=== PATIENT | male | born 1980 | race Caucasian/White ===

== ENCOUNTER 2021-11-05 22:35 | Inpatient (IN) | payer MEDICARE, OTHER, SELFPAY ==
--- NOTE | 2021-11-05 22:36 | ECG_ITS ---
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 Measurements Intervals [place] Rate: 71 P: 70 VT: 161 QRS: 43 QRSD: 87 T: 80 QT: 407 QTc: 443 Interpretive Statements SINUS RHYTHM TALL T-WAVES, SUGGESTS HYPERKALEMIA No previous ECG available for comparison Electronically Signed On 11-05-2021 23:25:36 CDT by Bryce Joseph M.D. [id number]
--- NOTE | 2021-11-05 22:47 | XRR_ITS ---
PROCEDURE INFORMATION: Exam: XR Chest Exam date and time: 11/05/2021 11:02 PM Age: 41 years old Clinical indication: Shortness of breath; Chest pressure; Patient HX: C/O RT sided chest pain with SOB. TECHNIQUE: Imaging protocol: Radiologic exam of the chest. Views: 1 view. COMPARISON: No relevant prior studies available. FINDINGS: Lungs: Unremarkable. No consolidation. Pleural spaces: Unremarkable. No pleural effusion. No pneumothorax. Heart/Mediastinum: Unremarkable. No cardiomegaly. Bones/joints: Unremarkable. XR/XR chest 1V portable [id number] IMPRESSION: No acute findings.
[2021-11-05 22:48] VITALS: BP 214/110; PULSE 72; RESP 18; TEMP 36.6; O2SAT 98; BMI 29.0
--- NOTE | 2021-11-05 22:51 | ED_ITS ---
HPI - Chest Pain General: Chief Complaint: Chest Pain Stated Complaint: Chest Pain/SOB Time Seen by Provider: 11/05/21 22:44 Source: patient Mode of arrival: ambulatory Limitations: no limitations History of Present Illness: 41-year-old male that has a history of end-stage renal disease. He states he is actually visiting here and is on vacation he supposed to be scheduled for dialysis today but was unable to get in. He states he has not had dialysis since Friday. He states has been having pain all over along with chest pain he is concerned that he is getting hyperkalemic. He is having some slight dyspnea denies any vomiting or diarrhea denies any worsening improving factors he is hypertensive here. Associated symptoms: Deny abdominal pain, dyspnea, fever(s), nausea or vomiting Review of Systems Const: Denies: fever(s), chills, body aches or change in appetite Eyes: Denies: blurry vision or eye discomfort ENMT: Denies: throat pain or dental pain Card: Reports: chest pain Resp: Denies: dyspnea GI: Denies: abdominal pain, nausea, vomiting or diarrhea : Denies: dysuria Musc: Denies: neck pain or back pain Skin/Breast: Denies: rash Neuro: Denies: headache(s) Psych: Denies: depression Hero/Lymph: Denies: easy bruising All/Imm: Denies: urticaria PFSH ED PFSH: Medical History (Updated 11/05/21 @ 23:51 by Srinivasa Philippe MD) ESRD (end stage renal disease) Social History (Updated 11/05/21 @ 22:51 by Srinivasa Philippe MD) Substance/Drug Use: unknown Physical Exam Const: COMMON NORMALS: patient oriented x3 HENMT: COMMON NORMALS: normocephalic and atraumatic HEAD & SCALP: normocephalic and atraumatic Eye: COMMON NORMALS: Equal, round and reactive pupils present and EOMs intact bilaterally PUPIL: Yes Equal, round and reactive pupils present Neck/C-Spine: COMMON NORMALS: full ROM and supple Chest: COMMONS NORMALS: normal inspection of the chest and normal palpation of entire chest wall Resp: COMMON NORMALS: normal respiratory effort, No retractions, No use of accessory muscles and clear to auscultation bilaterally AUSCULTATION: clear to auscultation bilaterally Cardio: COMMON NORMALS: regular rate, regular rhythm and No murmurs present (Cardio) RATE: regular rate RHYTHM: regular rhythm GI: COMMON NORMALS: Normal to inspection, nondistended, normoactive bowel sounds present, Soft to palpation, non-tender and no masses PALPATION: Yes Soft to palpation Extremity: COMMON NORMALS: normal to inspection and full ROM Neuro: COMMON NORMALS: patient oriented x3, moves all extremities and no focal motor deficits Psych: COMMON NORMALS: mental status grossly normal, Normal thought process present and cooperative THOUGHT PROCESS: Normal thought process present Skin: COMMON NORMALS: no rashes or lesions noted and no wounds GENERAL SKIN EXAM: no rashes or lesions noted Course Vital Signs: Vital signs: Vital Signs Temperature 97.8 F 11/05/21 22:48 Pulse Rate 72 11/05/21 22:48 Respiratory Rate 18 11/05/21 22:48 Blood Pressure 214/110 11/05/21 22:48 Pulse Oximetry 98 11/05/21 22:48 MDM - Chest Pain Medical Decision Making pt presents here with hyperkalemia and esrd. he had missed dialysis today. he does have peaked t wave on ekg. Pt given insulin, and calcium. will admit to icu and consult neprology Lab Data : 11/05/21 22:57 11/05/21 22:57 Laboratory Results WBC 12.0 10^3/uL (4.0-10.0) H 11/05/21 22:57 RBC 3.84 10^6/uL (4.1-5.3) L 11/05/21 22:57 Hgb 12.9 g/dL (11.7-16.6) 11/05/21 22:57 Hct 37.3 % (42.0-52.0) L 11/05/21 22:57 MCV 97.1 fl (80-94) H 11/05/21 22:57 MCH 33.6 pg (28.0-34.0) 11/05/21 22:57 MCHC 34.6 g/dL (30.0-36.0) 11/05/21 22:57 RDW 13.7 % (12.1-15.1) 11/05/21 22:57 Plt Count 264 10^3/cmm (130-400) 11/05/21 22:57 MPV 10.1 fL (7.4-10.4) 11/05/21 22:57 Neut % (Auto) 77.6 % 11/05/21 22:57 Lymph % (Auto) 13.9 % 11/05/21 22:57 [place] % (Auto) 6.7 % 11/05/21 22:57 Eos % (Auto) 0.9 % 11/05/21 22:57 Baso % (Auto) 0.5 % 11/05/21 22:57 Neut # (Auto) 9.30 10^3/uL (1.8-7.7) H 11/05/21 22:57 Lymph # (Auto) 1.7 10^3/uL (0.8-4.8) 11/05/21 22:57 [place] # (Auto) 0.8 10^3/uL (0.2-0.9) 11/05/21 22:57 Eos # (Auto) 0.1 10^3/uL (0.0-0.8) 11/05/21 22:57 Baso # (Auto) 0.1 10^3/uL (0.0-0.1) 11/05/21 22:57 Nucleated RBC % (auto) 0 % 11/05/21 22:57 Nucleated RBCs # 0.0 /100WBC 11/05/21 22:57 Sodium 135 mmol/L (136-145) L 11/05/21 22:57 Potassium 6.4 mmol/L (3.5-5.1) H 11/05/21 22:57 Chloride 88 mmol/L (98-107) L 11/05/21 22:57 Carbon Dioxide 22 mmol/L (22-29) 11/05/21 22:57 Anion Gap 31.4 (5-19) H 11/05/21 22:57 BUN 129 mg/dL (6-20) H* 11/05/21 22:57 Creatinine 14.4 mg/dL (0.7-1.2) H* 11/05/21 22:57 GFR Calculation 3.8 mL/min (90-130) L 11/05/21 22:57 Glucose 128 mg/dL (65-115) H 11/05/21 22:57 Calculated Osmolality 323 mOsm/kg (285-295) H 11/05/21 22:57 Calcium 7.5 mg/dL (8.5-10.5) L 11/05/21 22:57 Total Bilirubin 0.4 mg/dL (0.15-1.2) 11/05/21 22:57 AST 35 U/L (0-40) 11/05/21 22:57 ALT 42 U/L (0-41) H 11/05/21 22:57 Alkaline Phosphatase 146 IU/L (40-130) H 11/05/21 22:57 NT-Pro-B Natriuret Pep 41864 pg/mL (0-125) H 11/05/21 22:57 Total Protein 7.0 g/dL (6.6-8.7) 11/05/21 22:57 Albumin 4.4 g/dL (3.5-5.2) 11/05/21 22:57 Globulin 2.6 g/dL (1.3-4.6) 11/05/21 22:57 Lipase 26 U/L (13-60) 11/05/21 22:57 EKG Data EKG 1: I personally reviewed and interpreted this EKG as follows: EKG interpretation date: 11/05/21 EKG interpretation time: 22:42 Interpretation: nsr hr [address] elevation peaked t wave qrs 87 qtc 429 Critical Care Time Critical Care Time: Critical Care Time: Yes Total Critical Care Time: 40 Attestation: The high probability of a clinically significant, sudden or life threatening deterioration of the patient's nephrology system(s) required my full and direct attention, intervention and personal management. The critical care time is as shown. This time is in addition to time spent performing any reported procedures but includes the following: [x] Data and vital sign review and interpretation [x] Patient assessment, examination and intervention [x] Documentation [x] Medication orders and management Discharge Plan Discharge Patient Disposition: Admitted As Inpatient Admit Provider: Fabienne Ospina Clinical Impression: ESRD (end stage renal disease), Acute hyperkalemia Condition: Stable Coding Level of Care Code ED Learning Support Aide for Chg Fwd Exam Comprehensive
[2021-11-05 23:03] LABS: Basophils # 0.1 10^3/uL (0.0-0.1); Basophils % 0.5 %; Eosinophils # 0.1 10^3/uL (0.0-0.8); Eosinophils % 0.9 %; Hematocrit 37.3 % (42.0-52.0); Hemoglobin 12.9 g/dL (11.7-16.6); Lymphocytes # 1.7 10^3/uL (0.8-4.8); Lymphocytes % 13.9 %; Mean Corpuscular HGB Conc 34.6 g/dL (30.0-36.0); Mean Corpuscular Hemoglobin 33.6 pg (28.0-34.0); Mean Corpuscular Volume 97.1 fl (80-94); Mean Platelet Volume 10.1 fL (7.4-10.4); Monocytes # 0.8 10^3/uL (0.2-0.9); Monocytes % 6.7 %; Neutrophils % 77.6 %; Nucleated Red Blood Cells % 0 %; Platelet Count 264 10^3/cmm (130-400); Red Blood Count 3.84 10^6/uL (4.1-5.3); Red Cell Distribution Width 13.7 % (12.1-15.1)
[2021-11-05] MEDS: HYDROmorphone 1 mg/mL INJ 1 mL 0.5 MG IVP (23:18)
[2021-11-05] MEDS: ondansetron 2 mg/ML SDV 2 mL 4 MG IVP (23:18)
[2021-11-05 23:31] LABS: Alanine Aminotransferase 42 U/L (0-41); Albumin Level 4.4 g/dL (3.5-5.2); Alkaline Phosphatase 146 IU/L (40-130); Anion Gap 31.4 (5-19); Aspartate Amino Transferase 35 U/L (0-40); Calcium 7.5 mg/dL (8.5-10.5); Carbon Dioxide 22 mmol/L (22-29); Chloride 88 mmol/L (98-107); Globulin 2.6 g/dL (1.3-4.6); Glomerular Filtration Rate 3.8 mL/min (90-130); Glucose 128 mg/dL (65-115); Lipase 26 U/L (13-60); NT Pro B Type Natriuretic Pept 14691 pg/mL (0-125); Potassium 6.4 mmol/L (3.5-5.1); Sodium 135 mmol/L (136-145); Total Bilirubin 0.4 mg/dL (0.15-1.2)
[2021-11-05 23:39] LABS: Osmolality Calculated 323 mOsm/kg (285-295)
[2021-11-05 23:40] LABS: Blood Urea Nitrogen 129 mg/dL (6-20)
[2021-11-06] VITALS (21 sets, daily range): BP systolic 178–208; BP diastolic 85–117; PULSE 60–97; RESP 11–23; TEMP 36.4–36.8; O2SAT 97–100
[2021-11-06] MEDS: dextrose 50% syringe 50 mL IVP ×2 (00:06→03:02)
[2021-11-06] MEDS: calcium gluconate 0.9% NaCL 1 GM/50 ML PREMIX IV ×2 (00:06→04:03)
[2021-11-06 00:07] LABS: Glucose Point of Care 132 mg/dL (70-110)
[2021-11-06] MEDS: insulin regular-human 100 units/1 mL 10 UNIT IVP (00:07)
--- NOTE | 2021-11-06 01:13 | PM.CONSULT ---
Providers/Reason For Consult Consulting Physician/Specialty*: alejandra comer md / telenephrology Reason for Consult*: ESRD care, htn, hyperkalemia Requesting Physician: Dr Ospina Attending Physician: Fabienne Ospina MD History of Present Illness History of Present Illness Tommy Lopez is a 41 year old male ESRD. H/O htn. pT ON hd FOR 5 YRS. pt here on vacation. pt has HD MWF. last HD was October. pt here w/ chest discomfort, sob, feels that he needs dialysis. Review of Systems Narrative: weak, sob, some edema, nausea, cp, monsalve Medications/Allergies Allergies Allergy/AdvReac Type Severity Reaction Status Date / Time gentamicin Allergy ALGY-Rash Verified 11/05/21 22:51 tramadol Allergy ALGY-Joint Verified 11/05/21 22:51 Pain PFSH Acute PFSH: Medical History (Updated 11/05/21 @ 23:51 by Srinivasa Philippe MD) ESRD (end stage renal disease) Social History (Updated 11/05/21 @ 22:51 by Srinivasa Philippe MD) Substance/Drug Use: unknown Vitals/I&O/Wt Last Vital Signs Temp 97.8 F 11/05/21 22:48 Pulse 70 11/06/21 00:57 Resp 18 11/06/21 00:57 BP 202/90 11/06/21 00:57 Pulse Ox 99 11/06/21 00:57 Weight last 48 hrs Weight 81.647 kg Physical Exam Narrative: breathing well on nc 2l 02 htn heent- nc/at, eomi, anicteric neck supple lungs wheezes b/l heart reg abd soft, distended, + bs ext b/l edema neuro- a,a, o x 3 Data : 11/05/21 22:57 11/05/21 22:57 A&P Assessment and plan (1) ESRD (end stage renal disease): 41 yr old man 1. ESRD- will arrange for dialysis early today - 3.5- 4 hrs, remove 3.5 l, 2k bath 2. htn- clonidine and fluid removal on hd. continue outpt meds. no margaret-i/ aRB w/ hyperkalemia 3. hyperkalemia- rx medically and HD today 4. sob- cxr reviewed- not significant CHF. will also give albuterol 5. hgb - very good for ESRD 6. mild leukocytosis seen and examined w/ RN -telehealth visit informed consent for telehealth obtained time spent 50 + min Status: Acute Plan see above Consult Attestations Medical Necessity Statement: esrd, htn urgency, hyperkalemia Time Spent in Patient Care: Greater than 35 minutes (>than 50% of time spent in counselling and/or direct pt care on unit). Coding Level of Care Code Acute Insurance Underwriter Sales for Jaymie Harry Diagnoses ESRD (end stage renal disease) N18.6
[2021-11-06] MEDS: sodium polystyrene sulfonate 15 gm/60 mL Btl 30 GM PO (01:49)
[2021-11-06] MEDS: cloNIDine 0.1 mg Tablet PO ×2 (01:49→09:09)
[2021-11-06] MEDS: HYDROmorphone 1 mg/mL INJ 1 mL IVP (01:50)
[2021-11-06 01:53] LABS: Glucose Point of Care 72 mg/dL (70-110)
[2021-11-06] MEDS: FUROsemide 10 mg/mL SDV 10mL 80 MG IVP (02:39)
[2021-11-06 02:42] LABS: Glucose Point of Care 68 mg/dL (70-110)
[2021-11-06] MEDS: hyDRALAzine 20 mg/mL INJ 1 mL 10 MG IVP (03:02)
--- NOTE | 2021-11-06 03:24 | P.HP_ITS ---
Providers/Chief Complaint Admitting Physician: Fabienne Ospina MD Chief Complaint: Chest Pain/SOB History of Present Illness Tommy Lopez is a 41 year old male with CKD on dialysis MWF, DM on insulin pump, HTN, [place] presented to the Er with c/o chest pain, dyspnea, increased generalized swelling. He missed HD as he was unable to get in on his regular schedule MWF and had appt on Friday instead. Chest pain is midsternal, states he had similar pain in the past in the setting of V tach from hyperkalemia. His K today is noted to be 6.4 upon arrival with EKG showing peaked tall T waves. He had a cardiac cath ~1 month ago in anticipation of upcoming renal transplant- reportedly normal. BP noted to be 207/101 at time of exam. Review of Systems General: Reports: 10 or more systems reviewed and unremarkable except in HPI and below Const: Denies: fever(s), chills or body aches Eyes: Denies: change in vision, blurry vision or photophobia ENMT: Reports: hoarseness; Denies: throat pain, enlarged tonsils, odynophagia or nasal congestion Card: Denies: chest pain, palpitations, irregular heart rhythm, edema, swelling of feet/ankles, lightheadedness, pre-syncope, dyspnea on exertion or orthopnea Resp: Denies: dyspnea, productive cough, non-productive cough, wheezing, stridor, pain on inspiration, change in phlegm color, hemoptysis or chest congestion GI: Denies: abdominal pain, nausea, vomiting, hematemesis, coffee ground em esis, dysphagia, heartburn, diarrhea, constipation, GI cramping, change in stool character, hematochezia or melena : Denies: flank pain, dysuria, urinary frequency, urinary urgency, urinary hesitancy or hematuria Musc: Denies: neck pain, back pain, extremity pain, joint swelling, joint warmth or deformity Neuro: Denies: headache(s), numbness in extremities, weakness in extremities, sensory changes, difficulty walking, frequent falls, dizziness, vertigo, behavioral changes, Slurred speech present or seizure-like activity Psych: Denies: anxiety, depression, suicidal ideation or homicidal ideation Endo: Denies: polyuria, polydipsia, tired all the time, cold intolerance or hot flashes Hero/Lymph: Denies: easy bruising or easy bleeding Medications/Allergies Allergies Allergy/AdvReac Type Severity Reaction Status Date / Time gentamicin Allergy ALGY-Rash Verified 11/05/21 22:51 tramadol Allergy ALGY-Joint Verified 11/05/21 22:51 Pain PFSH Acute PFSH: Medical History (Updated 11/06/21 @ 03:33 by Fabienne Ospina MD) Diabetes mellitus ESRD (end stage renal disease) Hypertension Social History Substance/Drug Use: unknown Vitals/I&O/Wt Last Vital Signs Temp 97.8 F 11/05/21 22:48 Pulse 65 11/06/21 02:15 Resp 14 11/06/21 02:15 BP 207/101 11/06/21 02:15 Pulse Ox 100 11/06/21 02:15 11/05/21 11/05/21 11/06/21 14:59 22:59 06:59 Intake Total 50 / 50 Balance 50 / 50 Weight last 48 hrs Weight 81.647 kg Physical Exam Narrative: GEN: Awake, alert and oriented, no acute distress CVS: S1S2 N RS: CTA B/L Abd: Soft, nt/nd , bs+ MEETING MANAGER: no focal motor neuro deficits Data : 11/05/21 22:57 11/05/21 22:57 Other Labs: Radiology Impressions Chest X-Ray 11/05/21 22:47 IMPRESSION: No acute findings. Laboratory Results WBC 12.0 10^3/uL (4.0-10.0) H 11/05/21 22:57 RBC 3.84 10^6/uL (4.1-5.3) L 11/05/21 22:57 Hgb 12.9 g/dL (11.7-16.6) 11/05/21 22:57 Hct 37.3 % (42.0-52.0) L 11/05/21 22:57 MCV 97.1 fl (80-94) H 11/05/21 22:57 MCH 33.6 pg (28.0-34.0) 11/05/21 22:57 MCHC 34.6 g/dL (30.0-36.0) 11/05/21 22:57 RDW 13.7 % (12.1-15.1) 11/05/21 22:57 Plt Count 264 10^3/cmm (130-400) 11/05/21 22:57 MPV 10.1 fL (7.4-10.4) 11/05/21 22:57 Neut % (Auto) 77.6 % 11/05/21 22:57 Lymph % (Auto) 13.9 % 11/05/21 22:57 [place] % (Auto) 6.7 % 11/05/21 22:57 Eos % (Auto) 0.9 % 11/05/21 22:57 Baso % (Auto) 0.5 % 11/05/21 22:57 Neut # (Auto) 9.30 10^3/uL (1.8-7.7) H 11/05/21 22:57 Lymph # (Auto) 1.7 10^3/uL (0.8-4.8) 11/05/21 22:57 [place] # (Auto) 0.8 10^3/uL (0.2-0.9) 11/05/21 22:57 Eos # (Auto) 0.1 10^3/uL (0.0-0.8) 11/05/21 22:57 Baso # (Auto) 0.1 10^3/uL (0.0-0.1) 11/05/21 22:57 Nucleated RBC % (auto) 0 % 11/05/21 22:57 Nucleated RBCs # 0.0 /100WBC 11/05/21 22:57 Sodium 135 mmol/L (136-145) L 11/05/21 22:57 Potassium 6.4 mmol/L (3.5-5.1) H 11/05/21 22:57 Chloride 88 mmol/L (98-107) L 11/05/21 22:57 Carbon Dioxide 22 mmol/L (22-29) 11/05/21 22:57 Anion Gap 31.4 (5-19) H 11/05/21 22:57 BUN 129 mg/dL (6-20) H* 11/05/21 22:57 Creatinine 14.4 mg/dL (0.7-1.2) H* 11/05/21 22:57 GFR Calculation 3.8 mL/min (90-130) L 11/05/21 22:57 Glucose 128 mg/dL (65-115) H 11/05/21 22:57 POC Glucose 68 mg/dL (70-110) L 11/06/21 02:38 Calculated Osmolality 323 mOsm/kg (285-295) H 11/05/21 22:57 Calcium 7.5 mg/dL (8.5-10.5) L 11/05/21 22:57 Total Bilirubin 0.4 mg/dL (0.15-1.2) 11/05/21 22:57 AST 35 U/L (0-40) 11/05/21 22:57 ALT 42 U/L (0-41) H 11/05/21 22:57 Alkaline Phosphatase 146 IU/L (40-130) H 11/05/21 22:57 NT-Pro-B Natriuret Pep 19711 pg/mL (0-125) H 11/05/21 22:57 Total Protein 7.0 g/dL (6.6-8.7) 11/05/21 22:57 Albumin 4.4 g/dL (3.5-5.2) 11/05/21 22:57 Globulin 2.6 g/dL (1.3-4.6) 11/05/21 22:57 Lipase 26 U/L (13-60) 11/05/21 22:57 A&P Assessment and plan (1) Acute hyperkalemia: with evidence of tall peaked T waves on EKG Received Ca gluconate 1g iv x 1, insulin/dextrose, kayexalate Repeat potassium now after above interventions Planned for HD in am Status: Acute (2) ESRD (end stage renal disease): missed regularly schduled HD session today Renal consult to resume HD Status: Acute (3) Diabetes mellitus: Currently with noted hypoglycemia Instructed to turn off his insulin pump at this time Corrected currently with 50% dextrose- encourage po intake Status: Acute (4) Hypertensive urgency: BP currently 207/101, states that at home BP ranges normal List of home meds not currently available but reports taking 3 medications including hydralazine and clonidine Currently given iv hydralazine 10mg x 1 with improvement to SBP 168 Status: Acute (5) Chest pain: No acute St-T wave changes on EKG check troponin Lower suspicion for ACS given reportedly normal angiogram one month ago (results N/A at this time) Chest pain may be related to hyperkalemia vs hypertensive urgency Currently relieved with Dilaudid Status: Acute Attestations Medical Necessity Statement*: anticipate >2midnight admission for managment of hyperkalemia, hemodialysis and hypertensive urgency Coding Level of Care Code Acute Principal Ios Developer for g Fwd Diagnoses Diabetes mellitus E11.9 Acute hyperkalemia E87.5 ESRD (end stage renal disease) N18.6 Hypertensive urgency I16.0 Chest pain R07.9
[2021-11-06 03:33] LABS: Glucose Point of Care 172 mg/dL (70-110)
[2021-11-06] MEDS: ondansetron 2 mg/ML SDV 2 mL 4 MG IVP ×2 (04:02→09:58)
[2021-11-06] MEDS: acetaminophen 325 mg Tablet 650 MG PO (04:02)
[2021-11-06] MEDS: hyDRALAzine 25 mg Tablet PO ×2 (04:29→04:30)
--- NOTE | 2021-11-06 04:42 | ECG_ITS ---
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 Measurements Intervals [place] Rate: 96 P: 68 NC: 156 QRS: 86 QRSD: 107 T: 53 QT: 357 QTc: 453 Interpretive Statements SINUS RHYTHM Compared to ECG 11/05/2021 22:42:44 No significant changes Electronically Signed On 11-06-2021 20:10:27 CDT by Kathie Del Toro M.D. [email or web address] general [email or web address] medical specialty [email or web address]-fairhillPoptip/store/[id number]
[2021-11-06] MEDS: nitroglycerin 1 gm/inch oint Pkt 1.5 INCH TOPICAL (05:07)
[2021-11-06 05:26] LABS: Troponin T (5th) Once 173 ng/L (0-15)
[2021-11-06] MEDS: HYDROmorphone 1 mg/mL INJ 1 mL 0.2 MG IVP (06:33)
--- NOTE | 2021-11-06 06:52 | ECG_ITS ---
[facility] Test Date: 2021-11-06 Pat Name: Tommy Lopez Department: Room: ICU11 Gender: Male Boiler Service Technician: : 1980 Requested By: Fabienne Ospina Order Number: [id number] Reading MD: Kathie Del Toro M.D. Measurements Intervals [place] Rate: 77 P: 68 CA: 150 QRS: 57 QRSD: 86 T: 71 QT: 393 QTc: 445 Interpretive Statements SINUS RHYTHM POSSIBLE LEFT ATRIAL ENLARGEMENT [-0.1mV P-WAVE IN V1/V2] Compared to ECG 11/06/2021 04:45:35 No significant changes Electronically Signed On 11-06-2021 20:05:32 CDT by Kathie Del Toro M.D. [id number]
[2021-11-06] MEDS: heparin, porcine 1,000 unit/mL INJ 10 mL 2000 UNIT HE (07:18)
[2021-11-06] MEDS: diphenhydrAMINE 50 mg/mL SDV 1mL IVP (07:19)
[2021-11-06 07:38] LABS: Platelet Count 245 10^3/cmm (130-400)
[2021-11-06 07:57] LABS: Alanine Aminotransferase 38 U/L (0-41); Albumin Level 4.1 g/dL (3.5-5.2); Alkaline Phosphatase 137 IU/L (40-130); Anion Gap 28.8 (5-19); Aspartate Amino Transferase 24 U/L (0-40); Calcium 7.8 mg/dL (8.5-10.5); Carbon Dioxide 22 mmol/L (22-29); Chloride 91 mmol/L (98-107); Ferritin 522 ng/mL (30-400); Globulin 2.4 g/dL (1.3-4.6); Glomerular Filtration Rate 4.8 mL/min (90-130); Glucose 176 mg/dL (65-115); Iron 48 ug/dL (59-158); Osmolality Calculated 319 mOsm/kg (285-295); Percent Saturation 20.5 % (20-50); Potassium 4.8 mmol/L (3.5-5.1); Sodium 137 mmol/L (136-145); Total Bilirubin 0.3 mg/dL (0.15-1.2); Total Iron Binding Capacity 234 mcg/dl; Total Protein 6.5 g/dL (6.6-8.7); Unsaturated Iron Binding 186 ug/dL (112-347)
[2021-11-06 08:13] LABS: 25 Hydroxy Vitamin D 63 ng/mL (30-100)
[2021-11-06 08:21] LABS: Blood Urea Nitrogen 100 mg/dL (6-20); Troponin(5th) Baseline 153 ng/L (0-15)
--- NOTE | 2021-11-06 08:52 | ECG_ITS ---
[facility] Test Date: 2021-11-06 Pat Name: Tommy Lopez Department: Room: ICU11 Gender: Male Tire Servicer: : 1980 Requested By: Fabienne Ospina Order Number: [id number] Reading MD: Kathie Del Toro M.D. Measurements Intervals [place] Rate: 75 P: 57 ID: 144 QRS: 27 QRSD: 85 T: 62 QT: 405 QTc: 454 Interpretive Statements Normal sinus rhythm with a poor R wave progression. Heart rate of [address] Ts. Normal ID and QRS durations. Electronically Signed On 11-06-2021 20:13:23 CDT by Kathie Del Toro M.D. [id number]
[2021-11-06] MEDS: cloNIDine 0.1 mg/24 hr Patch 1 PATCH TRANSDERMA (09:09)
[2021-11-06] MEDS: pantoprazole DR 40 mg Tablet PO (09:10)
[2021-11-06 09:19] LABS: Calcium 7.6 mg/dL (8.5-10.5); Parathyroid Hormone 605.4 pg/mL (15-65)
[2021-11-06 09:21] LABS: Hepatitis B Surface AB 16.2 (11.5-1000); Hepatitis B Surface Antigen Non-Reactive (Nonreactive); Hepatitis C Virus Antibody Non-Reactive (Nonreactive)
[2021-11-06] MEDS: HYDROcodone-acetaminophen 10-325 mg Tablet 1 TAB PO (09:33)
[2021-11-06 10:19] LABS: Anion Gap 21.8 (5-19); Blood Urea Nitrogen 53 mg/dL (6-20); Calcium 8.5 mg/dL (8.5-10.5); Carbon Dioxide 25 mmol/L (22-29); Chloride 93 mmol/L (98-107); Glomerular Filtration Rate 8.8 mL/min (90-130); Glucose 199 mg/dL (65-115); Osmolality Calculated 302 mOsm/kg (285-295); Potassium 3.8 mmol/L (3.5-5.1); Sodium 136 mmol/L (136-145)
[2021-11-06 10:22] LABS: Creatinine Clr Calc Pharmacy 13.8508
--- NOTE | 2021-11-06 10:22 | PC.CHAP ---
Pastoral Care Encounter/Spiritual Assessment Type of Contact [] Declined clearing tub worker visit [] Patient/Family/Request visit [] Outpatient visit [] Follow-up visit [] Physician referral [] Code/Alert [x] Routine visit [] Staff referral [] Actively dying [] Patient sleeping [] Family support [] [] Out of room [] Palliative care [] [x] Receiving care in room [] Pre-surgical visit [] Trauma [] Long length of stay [x] ICU visit [] Other: Relational/Emotional Strength [] Patient feels connected with others/family/visitors/staff [] Distress [] Loneliness/isolation [] Abandonment Spirituality of Patient [] Person of Stephani [] Attends Sikhism of their Stephani [] Believes in Prayer [] Reads Bible or Religion materials [] There are Spiritual issues to be addressed Kitchen Food Server Interventions [x] Prayer [] Active listening [] Non-anxious presence [] Spiritual/emotional support [] Crisis/trauma care [] Spiritual counseling [] Bereavement support [] Provided bereavement packet [] Provided Bible/devotional materials [] Provided toy/stuffed animal, coloring book to patient or family member [] Provided Communion [] Anointing/Whitney [] Salvation [] Completed spiritual assessment [] Other: Impact on Illness or Injury [] Angry [] Fearful [] Anxious [] Often cries [] Exhaustion [] Unable to work [] Unable to attend episcopalian [] Unable to walk/stand [] Unable to read [] Unable to drive [] Unable to eat/drink [] Unable to sleep [] Unable to be with family [] Patient intubated [] Other: Summary Time spent with patient
[2021-11-06] MEDS: oxyCODONE 5 mg IR Tab/Cap 10 MG PO (10:48)
--- NOTE | 2021-11-06 10:59 | P.MISC_ITS ---
Miscellaneous Note Note: Patient was seen in ICU He was getting dialyzed He was complaining of back pain and muscle cramps in his legs Stating that in [facility] he has all the work-up, I have requested records Patient is stating that he is on transplant list for pancreatic and kidney transplant He is type I diabetic Recently had stress test and coronary angiogram which was unremarkable Repeat potassium 3.8 He has been started on heparin drip for bump in troponin He is complaining of chest discomfort as pressure-like sensation radiating from his right shoulder to left Second troponin 153, trending down EKG showed tall hyperkalemic waves Patient was hypotensive when I saw him He was complaining of back pain and leg cramps Awake and alert Nonfocal neuro exam Multiple skin tattoos Abdomen soft Left arm fistula EOMI, PERRLA Appropriate Dorsum to no edema No signs of myoclonus Plan Discontinue Nitropaste patient is experiencing headache I would use clonidine patch for now along with p.o. antibiotic regimens and IV as needed antihypertensives Pain is making his blood pressure worse as well For pain management I will add oxycodone, patient is taking hydrocodone 10 mg at home Patient is stating that he gets dialyzed Friday and Friday because of his hyperkalemia and fluid overloaded state updated I do believe his troponin leakage is secondary to hypertensive emergency I will request echo Considering the fact recently had angiogram 6 weeks ago I would not repeat another 1
--- NOTE | 2021-11-06 12:11 | PC.NURSE ---
Patient informed this nurse he wants to leave AMA, stating he came in because his dialysis appointment got moved and has an appointment , Dr. Coates notfied and advised this nurse to have patient sign AMA form, patient signed at this time
--- NOTE | 2021-11-06 12:29 | PC.NURSE ---
patient brice at this time, transported by
--- NOTE | 2021-11-06 14:31 | PM.DCS ---
Discharge Providers Date of Admission: 11/06/21 01:27 Date of Discharge: November 06, 2021 Attending Provider at Admission: Fabienne Ospina MD Attending Provider at Discharge: Santino Coates MD Diagnoses at Discharge Discharge Diagnosis (1) Acute hyperkalemia: Status: Acute (2) ESRD (end stage renal disease): Status: Acute (3) Diabetes mellitus: Status: Acute (4) Hypertensive urgency: Status: Acute (5) Chest pain: Status: Acute Reason for Visit Reason for Visit: Chest Pain/SOB Hospital Course Hospital Course Pt was seen while he was getting HD in the ICU. I gave him opioids for his back pain. Updated his as well. As soon as HD finished we repeated lab which showed improvement on Potassium and troponin trended down. Pt left AMA after HD stating he can't miss time his time with children while they are on vacation. Physical Exam Narrative: see my progress note Discharge Data Studies Completed and Pending Completed Studies During Hospitalization Category Date Time Status XR chest 1V portable [id number] Urgent Exams 11/05/21 22:47 Completed Pending at discharge Category Date Time Status Troponin(5th) 2 Hour. Timed Lab 11/06/21 08:52 Ordered Troponin(5th) 6 hour. Timed Lab 11/06/21 12:52 Ordered Vitamin D 1,25 Dihydroxy Routine Lab 11/06/21 07:24 Received Radiology Impressions Chest X-Ray 11/05/21 22:47 IMPRESSION: No acute findings. Laboratory Results WBC 12.0 10^3/uL (4.0-10.0) H 11/05/21 22:57 RBC 3.84 10^6/uL (4.1-5.3) L 11/05/21 22:57 Hgb 12.9 g/dL (11.7-16.6) 11/05/21 22:57 Hct 37.3 % (42.0-52.0) L 11/05/21 22:57 MCV 97.1 fl (80-94) H 11/05/21 22:57 MCH 33.6 pg (28.0-34.0) 11/05/21 22:57 MCHC 34.6 g/dL (30.0-36.0) 11/05/21 22:57 RDW 13.7 % (12.1-15.1) 11/05/21 22:57 Plt Count 245 10^3/cmm (130-400) 11/06/21 07:24 MPV 10.1 fL (7.4-10.4) 11/05/21 22:57 Neut % (Auto) 77.6 % 11/05/21 22:57 Lymph % (Auto) 13.9 % 11/05/21 22:57 [place] % (Auto) 6.7 % 11/05/21 22:57 Eos % (Auto) 0.9 % 11/05/21 22:57 Baso % (Auto) 0.5 % 11/05/21 22:57 Neut # (Auto) 9.30 10^3/uL (1.8-7.7) H 11/05/21 22:57 Lymph # (Auto) 1.7 10^3/uL (0.8-4.8) 11/05/21 22:57 [place] # (Auto) 0.8 10^3/uL (0.2-0.9) 11/05/21 22:57 Eos # (Auto) 0.1 10^3/uL (0.0-0.8) 11/05/21 22:57 Baso # (Auto) 0.1 10^3/uL (0.0-0.1) 11/05/21 22:57 Nucleated RBC % (auto) 0 % 11/05/21 22:57 Nucleated RBCs # 0.0 /100WBC 11/05/21 22:57 Sodium 136 mmol/L (136-145) 11/06/21 09:48 Potassium 3.8 mmol/L (3.5-5.1) 11/06/21 09:48 Chloride 93 mmol/L (98-107) L 11/06/21 09:48 Carbon Dioxide 25 mmol/L (22-29) 11/06/21 09:48 Anion Gap 21.8 (5-19) H 11/06/21 09:48 BUN 53 mg/dL (6-20) H 11/06/21 09:48 Creatinine 6.9 mg/dL (0.7-1.2) H* 11/06/21 09:48 GFR Calculation 8.8 mL/min (90-130) L 11/06/21 09:48 Glucose 199 mg/dL (65-115) H 11/06/21 09:48 POC Glucose 172 mg/dL (70-110) H 11/06/21 03:29 Calculated Osmolality 302 mOsm/kg (285-295) H 11/06/21 09:48 Calcium 8.5 mg/dL (8.5-10.5) 11/06/21 09:48 Iron 48 ug/dL (59-158) L 11/06/21 07:24 TIBC 234 mcg/dl 11/06/21 07:24 % Saturation 20.5 % (20-50) 11/06/21 07:24 Unsat Iron Binding 186 ug/dL (112-347) 11/06/21 07:24 Ferritin 522 ng/mL (30-400) H 11/06/21 07:24 Total Bilirubin 0.3 mg/dL (0.15-1.2) 11/06/21 07:24 AST 24 U/L (0-40) 11/06/21 07:24 ALT 38 U/L (0-41) 11/06/21 07:24 Alkaline Phosphatase 137 IU/L (40-130) H 11/06/21 07:24 Troponin T Gen 5 ng/L 173 ng/L (0-15) H* 11/05/21 22:57 Troponin T Baseline 153 ng/L (0-15) H* 11/06/21 07:24 NT-Pro-B Natriuret Pep 70069 pg/mL (0-125) H 11/05/21 22:57 Total Protein 6.5 g/dL (6.6-8.7) L 11/06/21 07:24 Albumin 4.1 g/dL (3.5-5.2) 11/06/21 07:24 Globulin 2.4 g/dL (1.3-4.6) 11/06/21 07:24 Lipase 26 U/L (13-60) 11/05/21 22:57 25-OH Vitamin D Total 63 ng/mL (30-100) 11/06/21 07:24 PTH Intact 605.4 pg/mL (15-65) H 11/06/21 07:24 Calcium (PTH Intact) 7.6 mg/dL (8.5-10.5) L 11/06/21 07:24 Hep Bs Antigen Non-reactive (Nonreactive) 11/06/21 07:24 Hep Bs Antibody 16.2 (11.5-1000) 11/06/21 07:24 Hepatitis C Antibody Cancelled 11/06/21 07:24 Hepatitis C Antibody Non-reactive (Nonreactive) 11/06/21 07:24 Vitals Last Vital Signs Temp 98.2 F 11/06/21 03:52 Pulse 83 11/06/21 09:00 Resp 15 11/06/21 10:48 BP 194/89 11/06/21 09:09 Pulse Ox 97 11/06/21 10:48 Discharge Plan Discharge Patient Disposition: Home Condition: Stable Prescriptions: Continued carvedilol 25 mg tablet 25 mg PO BID 0RF atorvastatin 20 mg tablet 20 mg PO DAILY 0RF diltiazem HCl 240 mg capsule,extended release 24 hr 240 mg PO DAILY 0RF hydrocodone-acetaminophen 10-325 mg tablet 1 tab PO Q6H PRN (Reason: Pain) 0RF clonidine HCl 0.2 mg tablet 0.2 mg PO DAILY 0RF hydralazine 100 mg tablet 100 mg PO BEDTIME 0RF pramipexole 0.25 mg tablet 0.25 mg PO TID 0RF Ventolin HFA 90 mcg/actuation HFA aerosol inhaler 2 puff INHALATION Q4H PRN (Reason: Shortness Of Breath) 0RF Humalog KwikPen Insulin 100 unit/mL insulin pen See Rx Instructions .ROUTE .COMPLEX 0RF Rx Instructions: Per Sliding Scale Lokelma 10 gram powder in packet 10 g PO DAILY 0RF Rx Instructions: On dialysis days Patient Instructions: Opioid Safety Discharge Attestations Time Spent in Discharge Care*: less than 30 min Quality Metrics Clinical Quality Measures [ No reported AMI, CVA or VTE this stay] Coding Level of Care Code Acute Chg FW DC note Diagnoses Acute hyperkalemia E87.5 ESRD (end stage renal disease) N18.6 Diabetes mellitus E11.9 Hypertensive urgency I16.0 Chest pain R07.9
[2021-11-09 13:53] LABS: Vit D 1,25 (Oh)2, Total 8 pg/mL (18-72); Vit D2 1,25 (Oh)2 <8 pg/mL; Vit D3 1,25 (Oh)2 8 pg/mL
== END 2021-11-06 12:32 | disposition home or self-care (01) | DRG 640 ==
LOC: ER 23:51 → ICU 11-06 00:01
PROVIDERS: Internal Medicine Nephrology; Admitting Provider Student in an Organized Health Care Education/Training Program; Emergency Provider Emergency Medicine; Visit Provider Internal Medicine
DX: E87.5 Hyperkalemia (principal); N18.6 End stage renal disease; I12.0 Hypertensive chronic kidney disease with stage 5 chronic kidney disease or end stage renal disease; E10.22 Type 1 diabetes mellitus with diabetic chronic kidney disease; Z99.2 Dependence on renal dialysis; Z96.41 Presence of insulin pump (external) (internal); I16.0 Hypertensive urgency; M54.9 Dorsalgia, unspecified; Z53.29 Procedure and treatment not carried out because of patient's decision for other reasons; Z79.891 Long term (current) use of opiate analgesic
CPT/HCPCS: 36416; 71045; 80048; 80053; 82306; 82310; 82652; 82728; 82962; 83540; 83550; 83690; 83880; 83970; 84484; 85025; 85049; 86706; 86803; 87340; 93005; 96365; 96375; 99285; J0360; J0610; J1170; J1200; J1644; J1815; J1940; J2405